=== PATIENT | male | born 1990 | race Two or more races ===

== ENCOUNTER 2024-10-02 20:31 | Emergency (ER) | payer OTHER ==
[~2024-10-02] VITALS: Ht 182.9 cm; Wt 78.5 kg
[2024-10-02 20:53] VITALS: BP 129/72; O2SAT 100
[2024-10-02] MEDS ORDERED: PANTOPRAZOLE SO40 MG PO (20:55)
== END 2024-10-02 22:52 | disposition home or self-care (01) ==
LOC: ER 20:33
DX: S99.822A Other specified injuries of left foot, initial encounter (principal); Y33.XXXA Other specified events, undetermined intent, initial encounter; Y93.89 Activity, other specified; Y92.89 Other specified places as the place of occurrence of the external cause; Y99.8 Other external cause status; Z88.5 Allergy status to narcotic agent